=== PATIENT | male | born 1965 | race Caucasian/White ===

== ENCOUNTER 2017-08-12 23:41 | Emergency (ER) | payer SELFPAY ==
[~2017-08-12] VITALS: Ht 154.9 cm; Wt 104.3 kg
[2017-08-12 23:48] VITALS: BP 165/97
--- NOTE | 2017-08-12 23:54 | NUR ---
PT AMBULATE TO ER BED 11.
--- NOTE | 2017-08-13 00:13 | NUR ---
PT PRESENTS TO ER C/O ABD PAIN AND BACK PAIN SINCE LAST NIGHT. AD IS ROUND, SOFT, NON TENDER. PT DENIES TRAUMA TO AFFECTED AREAS. PT HAS HAD N/V SINCE LAST NIGHT. PT IS STANDING AT BEDSIDE, BECAUSE HE HAS DISCOMFORT LAYING DOWN. NO PMH, NKDA
[2017-08-13] MEDS ORDERED: KETOROLAC 60 MG/2 ML VIAL IM ONE (00:25)
[2017-08-13 00:45] LABS: BASOPHILS % (AUTO) 0.4 % (0.0-2.0); EOSINOPHILS # (AUTO) 0.4 K/uL (0-0.4); EOSINOPHILS % (AUTO) 2.7 % (0.0-4.0); HEMATOCRIT 45.2 % (36-52); HEMOGLOBIN 14.4 g/dL (12.0-18.0); LYMPHOCYTES # (AUTO) 0.9 K/uL (2.0-11.5); LYMPHOCYTES % (AUTO) 6.7 % (20.5-51.1); MEAN CORPUSCULAR HEMOGLOBIN 26 pg (27-31); MEAN CORPUSCULAR HGB CONC 32 g/dL (33-37); MEAN CORPUSCULAR VOLUME 82.5 fL (80-94); MONOCYTES % (AUTO) 7.7 % (1.7-9.3); PLATELET COUNT (AUTO) 300 K/uL (140-450); RED BLOOD CELL COUNT(AUTO) 5.47 MIL/uL (4.20-6.10); RED CELL DISTRIBUTION WIDTH 20.4 % (11.6-13.7); WHITE BLOOD COUNT (AUTO) 13.3 K/uL (4.8-10.8)
[2017-08-13 01:02] LABS: ALBUMIN 2.8 g/dL (3.4-5.0); ANION GAP 12.7 (8-16); CREATININE 0.7 mg/dL (0.7-1.3); POTASSIUM 3.7 mmol/L (3.5-5.1); TOTAL BILIRUBIN 1.9 mg/dL (0.0-1.0)
[2017-08-13 01:10] LABS: NEUTROPHILS % (AUTO) 82.5 % (42.2-75.2)
--- NOTE | 2017-08-13 01:13 | NUR ---
US AT BEDSIDE.
[2017-08-13 02:10] VITALS: BP 145/67
== END 2017-08-13 02:10 | disposition home or self-care (01) ==
LOC: MED 23:41
DX: R10.13 Epigastric pain (principal); F17.210 Nicotine dependence, cigarettes, uncomplicated
CPT/HCPCS: 36415; 76705; 80053; 83690; 85025; 96372; 99285; J1885; Q0092